=== PATIENT | female | born 1925 | race Caucasian/White ===

== ENCOUNTER → 2017-04-26 | Emergency (ER) | payer OTHER ==
[~2017-04-26] VITALS: Ht 152.4 cm; Wt 68.0 kg
[~2017-04-26] MED LIST: ASA81 MG; CEFADROXIL500 MG PO; CEFDINIR300 MG PO; CILOSTAZOL100 MG; CLOTRIMAZOLE15 GM; Cordarone 200 MG TAB PO; ESTAZOLAM2 MG; FUROSEMIDE20 MG PO; GABAPENTIN100 M1; IMDUR30 MG; INTEGRA PLUS C1 EACH PO; ISOSORBIDE DINI30 MG; ISOSORBIDE MONO30 MG; KEFLEX500 MG PO; LEVOTHYROXINE50 MCG; METOPROLOL SUCC25 MG; NEURONTIN300 MG; Neurin-Sl Tablet Sl SL; PLAVIX75 MG; PROTONIX40 MG; SUCRALFATE1 GM/10 ML PO; TAB-A-VITE1 EACH; TOPROL XL25 M1 PO; TOPROL XL50 M1 PO; TOPROL XL50 MG PO; TRAMADOL HCL-AP1 TAB; ULTRACET PO; VASOTEC10 MG PO; VASOTEC2.5 MG; VASOTEC5 MG; VITAMIN B-121000 MCG; ZANTAC150 M1; ZANTAC300 MG; ZOCOR20 MG PO
== END | disposition home or self-care (01) ==
LOC: ER 09:15
DX: L97.528 Non-pressure chronic ulcer of other part of left foot with other specified severity (principal); L08.89 Other specified local infections of the skin and subcutaneous tissue; B95.61 Methicillin susceptible Staphylococcus aureus infection as the cause of diseases classified elsewhere; B96.5 Pseudomonas (aeruginosa) (mallei) (pseudomallei) as the cause of diseases classified elsewhere

== ENCOUNTER 2017-06-06 10:20 | Emergency (ER) | payer OTHER ==
[~2017-06-06] VITALS: Ht 160 cm; Wt 63.5 kg
== END 2017-06-06 17:54 | disposition expired ==
LOC: ER 10:20
DX: R57.0 Cardiogenic shock (principal); I50.9 Heart failure, unspecified; I21.4 Non-ST elevation (NSTEMI) myocardial infarction; D50.0 Iron deficiency anemia secondary to blood loss (chronic); K29.60 Other gastritis without bleeding; Z66 Do not resuscitate